=== PATIENT | female | born 1970 | race Caucasian/White ===

== ENCOUNTER 2018-04-01 11:32 | Emergency (ER) | payer SELFPAY ==
[2018-04-01 11:32] VITALS: BMI 27.4
[2018-04-01 11:44] VITALS: BP 134/79; PULSE 94; RESP 18; TEMP 98.7; O2SAT 97
--- NOTE | 2018-04-01 12:00 | ED PDOC ---
HPI: Allergic Reaction Time Seen by Provider: 04/01/18 11:48 Chief Complaint (Nursing): Abnormal Skin Integrity Chief Complaint (Provider): Abnormal Skin Integrity History Per: Patient History/Exam Limitations: no limitations Onset/Duration Of Symptoms: Days (x 3) Current Symptoms Are (Timing): Still Present Possible Cause: Food Associated Symptoms: Skin Rash, Itching Additional Complaint(s): 47 year old female presents to the ED with an itchy rash to the face, back, legs and hands bilaterally beginning three days ago. Patient reports no known allergens but the reaction occurred after eating fish. Denies throat tightness and shortness of breath. PMD: Dr. Hunt Past Medical History Reviewed: Historical Data, Nursing Documentation, Vital Signs Vital Signs: Last Vital Signs Temp 98.7 F 04/01/18 11:39 Pulse 94 H 04/01/18 11:39 Resp 18 04/01/18 11:39 BP 134/79 04/01/18 11:39 Pulse Ox 97 04/01/18 11:39 - Medical History PMH: HTN Denies: Chronic Kidney Disease - Surgical History Surgical History: No Surg Hx - Family History Family History: States: Unknown Family Hx - Home Medications Home Medications: Ambulatory Orders Medication Instructions Recorded Chlorthalidone 25 mg PO DAILY 03/23/15 oxyCODONE/Acetaminophen [Percocet 1 tab PO Q4 PRN #0 tab 03/23/15 5/325 mg Tab] Cetirizine HCl [Zyrtec] 10 mg PO DAILY #10 capsule 04/01/18 Famotidine [Pepcid] 20 mg PO Q12 #20 tab 04/01/18 Prednisone 50 mg PO DAILY #5 tab 04/01/18 - Allergies Allergies/Adverse Reactions: Allergies Allergy/AdvReac Type Severity Reaction Status Date / Time No Known Allergies Allergy Verified 04/01/18 11:44 Review of Systems ROS Statement: Except As Marked, All Systems Reviewed And Found Negative ENT: Negative for: Throat Swelling Cardiovascular: Negative for: Chest Pain Respiratory: Negative for: Shortness of Breath Skin: Positive for: Rash (itchy; to hands, legs, back and face) Physical Exam - Reviewed Nursing Documentation Reviewed: Yes Vital Signs Reviewed: Yes - Physical Exam Appears: Positive for: Non-toxic, No Acute Distress Head Exam: Positive for: ATRAUMATIC, NORMAL INSPECTION, NORMOCEPHALIC Skin: Positive for: Warm, Dry, Rash (eryhtematous, flat rash involving face and hands bilaterally) Eye Exam: Positive for: EOMI, Normal appearance, PERRL ENT: Negative for: Other (throat swelling) Neck: Positive for: Normal, Painless ROM, Supple Cardiovascular/Chest: Positive for: Regular Rate, Rhythm Respiratory: Positive for: Normal Breath Sounds. Negative for: Respiratory Distress Neurologic/Psych: Positive for: Alert, Oriented. Negative for: Motor/Sensory Deficits - ECG O2 Sat by Pulse Oximetry: 97 (RA) Pulse Ox Interpretation: Normal Disposition - Clinical Impression Clinical Impression: Allergic reaction - Patient ED Disposition Is Patient to be Admitted: No Counseled Patient/Family Regarding: Diagnosis, Need For Followup, Rx Given - Disposition [facility]errals: [facility] [Outside] Disposition: Routine/Home Disposition Time: 12:47 Condition: FAIR Prescriptions: Cetirizine HCl [Zyrtec] 10 mg PO DAILY #10 capsule Famotidine [Pepcid] 20 mg PO Q12 #20 tab Prednisone 50 mg PO DAILY #5 tab Instructions: Skin Rash Forms: [facility] (Turkmen) Print Language: SAMI Medical Decision Making Medical Decision Makin:52 Impression; possible allergic reaction Initial Plan: --Benadryl 25 mg PO --Pepcid 20 mg PO --Prednisone 40 mg PO 12:04 --Prednisone 10 mg PO Scribe Attestation: Documented by Meg Brennan acting as a scribe for Renato Fagan MD Provider Scribe Attestation: All medical record entries made by the Scribe were at my direction and personally dictated by me. I have reviewed the chart and agree that the record accurately reflects my personal performance of the history, physical exam, medical decision making, and the department course for this patient. I have also personally directed, reviewed, and agree with the discharge instructions and disposition.
== END 2018-04-01 13:22 | disposition home or self-care (01) ==
LOC: H.ER 11:32
DX: T78.40XA Allergy, unspecified, initial encounter (principal); I10 Essential (primary) hypertension